=== PATIENT | male | born 1945 | race American Indian/Alaskan Native ===

== ENCOUNTER 2017-06-19 20:55 | Emergency (ER) | payer MEDICARE ==
[2017-06-19] MEDS ORDERED: NORMODYNE IV ONE (21:22)
[2017-06-19 21:49] LABS: Basophils # (Auto) 0.1 K/mm3 (0.0-0.1); Basophils % (Auto) 1.3 % (0.0-1.8); Eosinophils # (Auto) 0.2 K/mm3 (0.0-0.4); Eosinophils % (Auto) 5.1 % (0.0-4.3); Hematocrit 33.8 % (35.5-45.6); Lymphocytes # (Auto) 1.4 K/mm3 (1.2-5.4); Lymphocytes % (Auto) 30.6 % (13.4-35.0); Mean Corpuscular HGB Conc 33 % (32-34); Mean Corpuscular Hemoglobin 29 pg (28-32); Mean Corpuscular Volume 89 fl (84-94); Monocytes # (Auto) 0.4 K/mm3 (0.0-0.8); Platelet Count 273 K/mm3 (140-440); Red Cell Distribution Width 15.8 % (13.2-15.2)
[2017-06-19 22:05] LABS: INR 1.05 (0.87-1.13)
[2017-06-19 22:06] LABS: Partial Thromboplastin Time 37.5 Sec. (24.2-36.6)
[2017-06-19 22:16] LABS: Creatine Kinase MB 1.1 ng/mL (0.0-4.0)
[2017-06-19 22:17] LABS: Albumin 2.8 g/dL (3.9-5); BUN/Creatinine Ratio 13; Blood Urea Nitrogen 14 mg/dL (9-20); Calcium 8.3 mg/dL (8.4-10.2); Hemolysis Index 16
[2017-06-19 22:20] LABS: Alanine Aminotransferase < 5 units/L (7-56)
[2017-06-19] MEDS ORDERED: K-DUR PO ONE (22:28)
[2017-06-19] MEDS ORDERED: NACL ONE (22:37)
--- NOTE | 2017-06-19 23:27 | Cat Scan Report ---
FINAL REPORT PROCEDURE: CT HEAD/BRAIN WO CON TECHNIQUE: Computerized tomography of the head was performed without contrast material. HISTORY: dizzy/weak COMPARISON: No prior studies are available for comparison. FINDINGS: Skull and scalp: Normal. Paranasal sinuses: Normal. Ventricles and subarachnoid spaces: Are prominent consistent with cerebral atrophy appropriate for patient's age.. Cerebrum: There is mild degree bilateral periventricular nonspecific white matter hypodensity consistent with chronic microangiopathy. An acute intra-axial or extra-axial hemorrhage is not identified. There is no mass effect. An old lacunar infarct is noted in the right thalamus.. Cerebellum and brainstem: An old lacunar infarct is noted in the mirella.. Vasculature: Normal. Comments: None. IMPRESSION: No acute intracranial abnormality. Old lacunar infarcts right thalamus and mirella.
--- NOTE | 2017-06-19 23:48 | Cat Scan Report ---
FINAL REPORT PROCEDURE: CT ANGIO CHEST TECHNIQUE: Computerized tomographic angiography of the chest was performed after the IV injection of iodinated nonionic contrast including image processing. The image data was postprocessed using 2-dimensional multiplanar reformatted (MPR) and 3-dimensional (MIP and/or volume rendered) techniques. HISTORY: hx of pe and thoracic aneurysm COMPARISON: 02/09/2017 FINDINGS: Bilateral pulmonary arteries and their branches demonstrate normal opacification without filling defects. There is mild opacification of the ascending aorta. Rest of the aorta is not opacified. Ascending aorta measures about 4.4 x 4.4 centimeters in AP and transverse dimensions. 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 The size of the aneurysmal sac involving the aortic arch and descending thoracic aorta is stable and unchanged measuring 7.3 centimeters and 5.6 centimeters respectively in the maximal transverse dimensions. Subsegmental atelectatic changes are noted in bilateral lower lobes. There are no confluent infiltrates or mass lesions. Pleural spaces are clear. Visualized upper abdominal structures are within normal limits. IMPRESSION: No evidence of pulmonary embolism. No acute pulmonary process. Aorta is not opacified with contrast. Aortic endo graft is again noted with stable size of the aneurysmal sac involving aortic arch and descending thoracic aorta.
[2017-06-20 01:01] LABS: Bilirubin,Urine NEG (Negative); Blood,Urine SM (Negative); Color,Urine Yellow (Yellow); Nitrite,Urine NEG (Negative); Protein,Urine <15 mg/dL mg/dL (Negative); Urobilinogen,Urine < 2.0 mg/dL (<2.0)
[2017-06-20] MEDS ORDERED: CATAPRES PO ONE (02:15)
--- NOTE | 2017-06-20 02:16 | Emergency Department Report ---
- General Chief complaint: High BP Stated complaint: HIGH BP Time Seen by Provider: 06/19/17 21:07 Source: patient, EMS Mode of arrival: Wheelchair Limitations: No Limitations - History of Present Illness Initial comments: 71-year-old male with past medical history CHF, PE, descending thoracic aneurysm repair, previous ICH previous CVA, CAD/ME, hypertension, and dementia presents to the hospital with generalized weakness 1 week. Patient became dizzy today and presents with elevated blood pressure. Patient denies any pain , shortness of breath, nausea, or vomiting. He states that he primarily is wheelchair bound but uses a walker on occasion as well. Patient is alert and oriented 3 but dementia is reported. Severity scale (0 -10): 0 - Related Data Previous Rx's Medication Instructions Recorded Last Taken Type Carvedilol [Coreg] 3.125 mg PO BID #60 tablet 02/12/17 Unknown Rx Enoxaparin [Lovenox] 100 mg SUB-Q Q24HR #5 syringe 02/12/17 Unknown Rx Warfarin [Coumadin] 7.5 mg PO DAILY@1700 #30 tablet 02/12/17 Unknown Rx Allergies Allergy/AdvReac Type Severity Reaction Status Date / Time No Known Allergies Allergy Verified 02/06/16 04:10 ED Review of Systems ROS: Stated complaint: HIGH BP Other details as noted in HPI Comment: All other systems reviewed and negative Other: Constitutional: No fevers chills Eyes: No eye pain visual changes ENT: No ear pain or throat pain Neck: Denies pain Respiratory: Denies cough wheezing shortness of breath Cardiovascular: Denies chest pain, palpitations, syncope GI: Denies abdominal pain, nausea, vomiting, diarrhea : Denies dysuria Musculoskeletal: Denies back pain Skin: Denies rash, lesions, erythema Neurologic: Denies headache, numbness Psychiatric: Denies suicidal ideation, hallucinations ED Past Medical Hx - Past Medical History Hx Hypertension: Yes Hx CVA: Yes Hx Heart Attack/AMI: Yes (2+ yrs ago) Hx Congestive Heart Failure: Yes (diastolic heart failure EF of 45-50%) Hx Diabetes: No Hx Pulmonary Embolism: Yes (2016) Hx Asthma: No Hx COPD: No Additional medical history: Girlfriend reports he may have dementia? Intracerebral hemorrhage 2015. Prolonged immobility - Surgical History Hx Appendectomy: Yes Additional Surgical History: Descending thoracic aorta repair - Social History Smoking Status: Never Smoker Substance Use Type: None - Medications Home Medications: Home Medications Medication Instructions Recorded Confirmed Last Taken Type Carvedilol [Coreg] 3.125 mg PO BID #60 tablet 02/12/17 Unknown Rx Enoxaparin [Lovenox] 100 mg SUB-Q Q24HR #5 syringe 02/12/17 Unknown Rx Warfarin [Coumadin] 7.5 mg PO DAILY@1700 #30 tablet 02/12/17 Unknown Rx ED Physical Exam - General Limitations: No Limitations - Other Other exam information: General: No limitations, patient is alert in no acute distress Head exam: Atraumatic, normocephalic Eyes exam: Normal appearance, pupils equal reactive to light, extraocular movements intact ENT: Moist mucous membrane, normal oropharynx Neck exam: Normal inspection, full range of motion, no meningismus nontender Respiratory exam: Clear to auscultation bilateral, no wheezes, rales, crackles Cardiovascular: Normal rate and rhythm, normal heart sounds Abdomen: Soft, nondistended, and nontender, with normal bowel sounds, no rebound, or guarding Extremity: Full range of motion normal inspection no deformity Back: Normal Inspection, full range of motion, no tenderness Neurologic: Alert, oriented x3, cranial nerves intact, 5/5 upper extremity strength equal bilaterally, 4/5 bilateral lower extremity strength equal bilaterally. [id number] function intact. Sensation grossly intact Psychiatric: normal affect, normal mood Skin: Warm, dry, intact ED Course Vital Signs 06/19/17 06/19/17 06/19/17 21:11 21:21 23:10 Temperature 97.6 F Pulse Rate 75 73 Respiratory 16 16 Rate Blood Pressure 204/122 188/103 Blood Pressure [Left] O2 Sat by Pulse 98 100 Oximetry 06/20/17 00:00 Temperature Pulse Rate 64 Respiratory 16 Rate Blood Pressure Blood Pressure 169/98 [Left] O2 Sat by Pulse 100 Oximetry - Reevaluation(s) Reevaluation #1: 06/20/17 02:16 Blood pressure initially improved after labetalol 10 mg IV. His creeping back upward. 0.1 endocrine he ordered at this time ED Medical Decision Making - Lab Data Result diagrams: 06/19/17 21:28 06/19/17 21:28 Lab Results 06/19/17 06/19/17 06/19/17 Range/Units 21:28 21:28 21:28 WBC 4.5 (4.5-11.0) K/mm3 RBC 3.80 (3.65-5.03) M/mm3 Hgb 11.0 L (11.8-15.2) gm/dl Hct 33.8 L (35.5-45.6) % MCV 89 (84-94) fl MCH 29 (28-32) pg MCHC 33 (32-34) % RDW 15.8 H (13.2-15.2) % Plt Count 273 (140-440) K/mm3 Lymph % (Auto) 30.6 (13.4-35.0) % Pike % (Auto) 8.0 H (0.0-7.3) % Eos % (Auto) 5.1 H (0.0-4.3) % Baso % (Auto) 1.3 (0.0-1.8) % Lymph # 1.4 (1.2-5.4) K/mm3 Pike # 0.4 (0.0-0.8) K/mm3 Eos # 0.2 (0.0-0.4) K/mm3 Baso # 0.1 (0.0-0.1) K/mm3 Seg Neutrophils % 55.0 (40.0-70.0) % Seg Neutrophils # 2.5 (1.8-7.7) K/mm3 PT 14.3 (12.2-14.9) Sec. INR 1.05 (0.87-1.13) APTT 37.5 H (24.2-36.6) Sec. Sodium 139 (137-145) mmol/L Potassium 3.3 L (3.6-5.0) mmol/L Chloride 100.2 (98-107) mmol/L Carbon Dioxide 24 (22-30) mmol/L Anion Gap 18 mmol/L BUN 14 (9-20) mg/dL Creatinine 1.1 (0.8-1.5) mg/dL Estimated GFR > 60 ml/min BUN/Creatinine Ratio 13 % Glucose 88 (75-100) mg/dL Calcium 8.3 L (8.4-10.2) mg/dL Magnesium (1.7-2.3) mg/dL Total Bilirubin 0.50 (0.1-1.2) mg/dL AST 11 (5-40) units/L ALT < 5 L (7-56) units/L Alkaline Phosphatase 93 (35-129) units/L Total Creatine Kinase 105 (55-170) units/L CK-MB (CK-2) 1.1 (0.0-4.0) ng/mL CK-MB (CK-2) Rel Index 1.0 (0-4) Troponin T 0.016 (0.00-0.029) ng/mL Total Protein 8.5 H (6.3-8.2) g/dL Albumin 2.8 L (3.9-5) g/dL Albumin/Globulin Ratio 0.5 % Urine Color (Yellow) Urine Turbidity (Clear) Urine pH (5.0-7.0) Ur Specific [place] (1.003-1.030) Urine Protein (Negative) mg/dL Urine Glucose (UA) (Negative) mg/dL Urine Ketones (Negative) mg/dL Urine Blood (Negative) Urine Nitrite (Negative) Urine Bilirubin (Negative) Urine Urobilinogen (<2.0) mg/dL Ur Leukocyte Esterase (Negative) Urine WBC (Auto) (0.0-6.0) /HPF Urine RBC (Auto) (0.0-6.0) /HPF U Epithel Cells (Auto) (0-13.0) /HPF 18 06/20/17 Range/Units 22:28 00:43 WBC (4.5-11.0) K/mm3 RBC (3.65-5.03) M/mm3 Hgb (11.8-15.2) gm/dl Hct (35.5-45.6) % MCV (84-94) fl MCH (28-32) pg MCHC (32-34) % RDW (13.2-15.2) % Plt Count (140-440) K/mm3 Lymph % (Auto) (13.4-35.0) % Pike % (Auto) (0.0-7.3) % Eos % (Auto) (0.0-4.3) % Baso % (Auto) (0.0-1.8) % Lymph # (1.2-5.4) K/mm3 Pike # (0.0-0.8) K/mm3 Eos # (0.0-0.4) K/mm3 Baso # (0.0-0.1) K/mm3 Seg Neutrophils % (40.0-70.0) % Seg Neutrophils # (1.8-7.7) K/mm3 PT (12.2-14.9) Sec. INR (0.87-1.13) APTT (24.2-36.6) Sec. Sodium (137-145) mmol/L Potassium (3.6-5.0) mmol/L Chloride (98-107) mmol/L Carbon Dioxide (22-30) mmol/L Anion Gap mmol/L BUN (9-20) mg/dL Creatinine (0.8-1.5) mg/dL Estimated GFR ml/min BUN/Creatinine Ratio % Glucose (75-100) mg/dL Calcium (8.4-10.2) mg/dL Magnesium 2.00 (1.7-2.3) mg/dL Total Bilirubin (0.1-1.2) mg/dL AST (5-40) units/L ALT (7-56) units/L Alkaline Phosphatase (35-129) units/L Total Creatine Kinase (55-170) units/L CK-MB (CK-2) (0.0-4.0) ng/mL CK-MB (CK-2) Rel Index (0-4) Troponin T (0.00-0.029) ng/mL Total Protein (6.3-8.2) g/dL Albumin (3.9-5) g/dL Albumin/Globulin Ratio % Urine Color Yellow (Yellow) Urine Turbidity Clear (Clear) Urine pH 7.0 (5.0-7.0) Ur Specific [place] 1.026 (1.003-1.030) Urine Protein <15 mg/dl (Negative) mg/dL Urine Glucose (UA) Neg (Negative) mg/dL Urine Ketones Neg (Negative) mg/dL Urine Blood Sm (Negative) Urine Nitrite Neg (Negative) Urine Bilirubin Neg (Negative) Urine Urobilinogen < 2.0 (<2.0) mg/dL Ur Leukocyte Esterase Neg (Negative) Urine WBC (Auto) 3.0 (0.0-6.0) /HPF Urine RBC (Auto) 5.0 (0.0-6.0) /HPF U Epithel Cells (Auto) < 1.0 (0-13.0) /HPF - EKG Data -: EKG Interpreted by [facility] EKG shows normal: sinus rhythm, axis (-35), QRS complexes (107), ST-T waves ( ant lat t inv) Rate: normal (61) - EKG Data When compared to previous EKG there are: no significant change (compared to December 2016 EKG) - Radiology Data Radiology results: report reviewed Read by radiologist CT head: No acute findings. Old lacunar infarcts right thalamus in mirella CT angiogram chest: No evidence of pulmonary embolism. No acute process. Aortic endograft is again noted stable size of the aneurysm sac involving aortic arch and descending thoracic aorta - Medical Decision Making Patient has a nonfocal exam, labs did not reveal any significant abnormality other than mild hypokalemia. Imaging unremarkable. By mouth potassium provided. Patient was hypertensive but relatively asymptomatic. Blood pressure initially improved with labetalol. Initial clonidine given prior to discharge. Patient be discharged home to continue his current medications and to follow-up closely with his primary care doctor. - Differential Diagnosis hypertensive emergency, anemia, UTI, electrolyte abnormality, dissection Critical Care Time: No Critical care attestation.: If time is entered above; I have spent that time in minutes in the direct care of this critically ill patient, excluding procedure time. ED Disposition Clinical Impression: Uncontrolled hypertension, Debility, Generalized weakness Disposition: DC-01 TO HOME OR SELFCARE Is pt being admited?: No Does the pt Need Aspirin: No Condition: Stable Instructions: Hypertension (ED), Weakness (ED) Additional Instructions: Follow-up with your doctor or the doctor provided. Return if symptoms worsen. Continue your blood pressure medications as prescribed. Continue Monitoring of blood pressure at home. Referred to your doctor for medication adjustment. Referrals: MIKALA BALDWIN MD [Primary Care Provider] - 3-5 Days your, pmd [Other] - 3-5 Days Time of Disposition: 02:20
[2017-06-20 09:02] VITALS: BP 130/76
== END 2017-06-20 10:22 | disposition home or self-care (01) ==
LOC: ED 20:55
DX: I10 Essential (primary) hypertension (principal); I25.2 Old myocardial infarction; I11.0 Hypertensive heart disease with heart failure; I50.30 Unspecified diastolic (congestive) heart failure; Z86.73 Personal history of transient ischemic attack (TIA), and cerebral infarction without residual deficits
CPT/HCPCS: 36415; 70450; 71275; 80053; 81001; 82550; 82553; 83735; 84484; 85025; 85610; 85730; 93005; 93010; 96374; 99285; Q9967

== ENCOUNTER 2017-09-03 15:24 | Emergency (ER) | payer MEDICARE ==
--- NOTE | 2017-09-03 18:05 | Emergency Department Report ---
ED Medical Clearance HPI - General Chief complaint: High BP Stated complaint: HBP Time Seen by Provider: 09/03/17 17:00 Source: patient, EMS (ems notes not available at time of chart dictation), RN notes reviewed, old records reviewed Mode of arrival: Stretcher Limitations: No Limitations - History of Present Illness Initial comments: This is a 71-year-old male. I have evaluated him in the past. Patient has a past medical history of intracranial hemorrhage, resting aneurysm repair, hypertension, currently on Coumadin. The patient is sent to the ER by his visiting nurse for evaluation of elevated blood pressure that is not symptomatic. Apparently his blood pressure was 170/ 110. The patient has no complaints. He specifically denies headache, neck pain, chest pain, abdominal pain, shortness of breath, weakness, numbness, unsteady gait and urinary symptoms. MD Complaint: other (sense for evaluation of asymptomatic elevated blood pressure) -: unknown Reason for Medical Clearance: medical condition Place: home Alledged Intoxication: No Compliant with Home Medications: Yes Traumatic Symptoms: denies traumatic injury Associated Symptoms: denies: chest pain, shortness of breath, palpitations, diaphoresis, denies other symptoms, confusion, cough, fever/chills, headaches, anorexia, malaise, nausea/vomiting, rash, seizure, syncope, weakness Home medications: Previous Rx's Medication Instructions Recorded Last Taken Type Warfarin [Coumadin] 7.5 mg PO DAILY@1700 #30 tablet 02/12/17 07/11/17 Rx 7.5 AtorvaSTATin [Lipitor] 10 mg PO QHS #30 tablet 07/12/17 Unknown Rx Pantoprazole [Protonix TAB] 40 mg PO QDAY #30 tablet 07/12/17 Unknown Rx Carvedilol [Coreg] 3.125 mg PO BID #60 tablet 09/03/17 Unknown Rx Allergies/Adverse reactions: Allergies Allergy/AdvReac Type Severity Reaction Status Date / Time No Known Allergies Allergy Verified 02/06/16 04:10 ED Review of Systems ROS: Stated complaint: HBP Other details as noted in HPI Comment: All other systems reviewed and negative ED Past Medical Hx - Past Medical History Hx Hypertension: Yes Hx CVA: Yes (2015) Hx Heart Attack/AMI: Yes Hx Congestive Heart Failure: Yes (diastolic heart failure EF of 45-50%) Hx Diabetes: No Hx Pulmonary Embolism: Yes (2016) Hx GERD: Yes Hx Liver Disease: No Hx Renal Disease: No Hx Sickle Cell Disease: No Hx Arthritis: Yes Hx Headaches / Migraines: Yes (migraines) Hx Seizures: No Hx Kidney Stones: No Hx Psychiatric Treatment: No Hx Asthma: No Hx COPD: No Hx Tuberculosis: No Hx HIV: No Additional medical history: Girlfriend reports he may have dementia? Intracerebral hemorrhage 2015. Prolonged immobility - Surgical History Hx Appendectomy: Yes Additional Surgical History: Descending thoracic aorta repair - Social History Smoking Status: Never Smoker - Medications Home Medications: Home Medications Medication Instructions Recorded Confirmed Last Taken Type Warfarin [Coumadin] 7.5 mg PO DAILY@1700 #30 tablet 02/12/17 07/11/17 07/11/17 Rx 7.5 AtorvaSTATin [Lipitor] 10 mg PO QHS #30 tablet 07/12/17 Unknown Rx Pantoprazole [Protonix TAB] 40 mg PO QDAY #30 tablet 07/12/17 Unknown Rx Carvedilol [Coreg] 3.125 mg PO BID #60 tablet 09/03/17 Unknown Rx ED Physical Exam - General Limitations: No Limitations General appearance: alert, in no apparent distress - Head Head exam: Present: atraumatic, normocephalic - Eye Eye exam: Present: normal appearance, EOMI, other (visual acuity intact to finger counting, color perception, reading at a close distance). Absent: nystagmus - ENT ENT exam: Present: normal exam, normal orophraynx, mucous membranes moist, normal external ear exam - Neck Neck exam: Present: normal inspection, full ROM. Absent: tenderness, meningismus - Respiratory Respiratory exam: Present: normal lung sounds bilaterally. Absent: respiratory distress - Cardiovascular Cardiovascular Exam: Present: normal rhythm, bradycardia, normal heart sounds. Absent: tachycardia, irregular rhythm, systolic murmur, diastolic murmur, rubs, gallop - GI/Abdominal GI/Abdominal exam: Present: soft, normal bowel sounds. Absent: distended, tenderness, guarding, rebound, rigid, pulsatile mass - Rectal Rectal exam: Present: deferred - Extremities Exam Extremities exam: Present: normal inspection, full ROM, normal capillary refill. Absent: pedal edema, joint swelling, calf tenderness - Back Exam Back exam: Present: normal inspection, full ROM. Absent: tenderness, CVA tenderness (R), paraspinal tenderness, vertebral tenderness - Neurological Exam Neurological exam: Present: alert, oriented X3 (alert to name, month, location.) , CN II-XII intact, other (Extraocular movements intact. Tongue midline. No facial droop. Facial sensation intact to light touch in the V1, V2, V3 distribution bilaterally. 5 and 5 strength in 4 extremities.. Sensation is intact to light touch in 4 extremities.). Absent: motor sensory deficit - Psychiatric Psychiatric exam: Present: normal affect, normal mood - Skin Skin exam: Present: warm, dry, intact, normal color. Absent: rash ED Course Vital Signs 09/03/17 16:18 Temperature 98.4 F Pulse Rate 57 L Respiratory 16 Rate Blood Pressure 166/91 [right arm] O2 Sat by Pulse 99 Oximetry ED Medical Decision Making - Lab Data Vital Signs 09/03/17 16:18 Temperature 98.4 F Pulse Rate 57 L Respiratory 16 Rate Blood Pressure 166/91 [right arm] O2 Sat by Pulse 99 Oximetry - Medical Decision Making Differential diagnosis, including a not limited to: Asymptomatic elevated blood pressure, Gen. medical evaluation, medical screening exam Assessment and plan: 71-year-old male who has no complaints who is sent to the ER for evaluation of asymptomatic elevated blood pressure. Patient is alert and oriented to name, place, location and month. His physical exam is unremarkable. He does not endorse any specific complaint. His medication list is reviewed. I will refill his blood pressure medication. He does not require further diagnostic testing or evaluation at this time. Please reference the [employer] clinical policy on blood pressure that is asymptomatic ED Disposition Clinical Impression: Elevated blood pressure reading Disposition: TO HOME OR SELFCARE Is pt being admited?: No Does the pt Need Aspirin: No Condition: Good Instructions: Hypertension (ED) Additional Instructions: Continue current outpatient medications. Follow up with a listed primary care doctor within the next month for elevated blood pressure. Please follow up with her primary care doctor within the next 2-3 weeks for a Coumadin level checked. Blood pressure was somewhat elevated today. This should be followed up and checked out by a primary care doctor as recommended. Long-term complications of hypertension and elevated blood pressure include stroke, heart attack, disability, , paralysis, loss of quality of life. Return to the ER right away with fevers, chills, chest pain, shortness of breath, intractable nausea or vomiting, confusion, inability to tolerate liquid feeds. Referrals: PRIMARY CARE, [Primary Care Provider] - 3-5 Days DIAMOND PANG MD [Staff Physician] - 3-5 Days
[2017-09-03 18:46] VITALS: BP 160/89
== END 2017-09-03 23:56 | disposition home or self-care (01) ==
LOC: ED 15:24
DX: I10 Essential (primary) hypertension (principal); I50.9 Heart failure, unspecified; I25.2 Old myocardial infarction; K21.9 Gastro-esophageal reflux disease without esophagitis; M19.90 Unspecified osteoarthritis, unspecified site; G43.909 Migraine, unspecified, not intractable, without status migrainosus; Z90.49 Acquired absence of other specified parts of digestive tract; Z86.73 Personal history of transient ischemic attack (TIA), and cerebral infarction without residual deficits; Z86.711 Personal history of pulmonary embolism
CPT/HCPCS: 99283

== ENCOUNTER 2018-01-24 13:58 | Emergency (ER) | payer MEDICARE ==
--- NOTE | 2018-01-24 17:13 | Emergency Department Report ---
HPI - General Chief Complaint: Nausea/Vomiting/Diarrhea Time Seen by Provider: 01/24/18 16:26 - HPI HPI: 72-year-old -[place] male presents to the emergency department by EMS with complaint of some nausea, vomiting and abdominal pain that started just prior to presentation. The patient was sitting outside in his wheelchair when he complained to the symptoms to a friend who then brought him back inside and called EMS. Currently the patient says he is feeling improved. He has a past medical history of CHF, previous CVA, GERD, migraine headaches, coronary artery disease, hypertension, pulmonary embolism. He did not take anything and was not given anything for his symptoms prior to presentation. ED Past Medical Hx - Past Medical History Hx Hypertension: Yes Hx CVA: Yes (2015) Hx Heart Attack/AMI: Yes Hx Congestive Heart Failure: Yes (diastolic heart failure EF of 45-50%) Hx Diabetes: No Hx Pulmonary Embolism: Yes (2016) Hx GERD: Yes Hx Liver Disease: No Hx Renal Disease: No Hx Sickle Cell Disease: No Hx Arthritis: Yes Hx Headaches / Migraines: Yes (migraines) Hx Seizures: No Hx Kidney Stones: No Hx Psychiatric Treatment: No Hx Asthma: No Hx COPD: No Hx Tuberculosis: No Hx HIV: No Additional medical history: Girlfriend reports he may have dementia? Intracerebral hemorrhage 2015. Prolonged immobility - Surgical History Hx Appendectomy: Yes Additional Surgical History: Descending thoracic aorta repair - Social History Smoking Status: Never Smoker - Medications Home Medications: Home Medications Medication Instructions Recorded Confirmed Last Taken Type Pantoprazole [Protonix TAB] 40 mg PO QDAY #30 tablet 07/12/17 01/06/18 Unknown Rx Carvedilol [Coreg] 12.5 mg PO BID 01/06/18 01/06/18 Unknown History Furosemide [Lasix] 20 mg PO DAILY 01/06/18 01/06/18 Unknown History Warfarin [Coumadin] 5 mg PO DAILY 01/06/18 01/06/18 Unknown History Warfarin [Coumadin] 5 mg PO DAILY 01/06/18 01/06/18 Unknown History levETIRAcetam [Levetiracetam] 500 mg PO BID 01/06/18 01/06/18 Unknown History AtorvaSTATin [Lipitor] 10 mg PO QHS tablet 01/08/18 Unknown Rx Metoprolol [Lopressor TAB] 12.5 mg PO BID #60 tablet 01/08/18 Unknown Rx Nitrofurantoin Monohyd/M-Cryst 100 mg PO BID #14 capsule 01/25/18 Unknown Rx [Macrobid 100 mg Capsule] ED Review of Systems ROS: Stated complaint: ABD PAIN/VOMITING Other details as noted in HPI Comment: All other systems reviewed and negative Constitutional: denies: chills, fever Eyes: denies: eye pain, eye discharge, vision change ENT: denies: ear pain, throat pain Respiratory: denies: cough, shortness of breath, wheezing Cardiovascular: denies: chest pain, palpitations Gastrointestinal: abdominal pain, nausea, vomiting Genitourinary: denies: urgency, dysuria Musculoskeletal: denies: back pain, joint swelling, arthralgia Skin: denies: rash, lesions Neurological: denies: headache, numbness Physical Exam - Physical Exam Vital Signs: Vital Signs 01/24/18 01/24/18 01/24/18 14:52 16:04 16:13 Temperature 97.5 F L Pulse Rate 60 Respiratory 18 18 Rate Blood Pressure 146/91 Blood Pressure 115/72 [Left] O2 Sat by Pulse 96 Oximetry Physical Exam: GENERAL: The patient is well-developed well-nourished. HENT: Normocephalic. Atraumatic. Patient has moist mucous membranes. EYES: Extraocular motions are intact. Pupils equal reactive to light bilaterally. NECK: Supple. Trachea is midline. CHEST/LUNGS: Clear to auscultation. There is no respiratory distress noted. HEART/CARDIOVASCULAR: Regular. There is no tachycardia. There is no murmur. ABDOMEN: Abdomen is soft. No current tenderness to palpation. No guarding. Patient has normal bowel sounds. There is no abdominal distention. SKIN: Skin is warm and dry. NEURO: The patient is awake, alert and cooperative. The patient has no focal neurologic deficits. The patient has normal speech. MUSCULOSKELETAL: There is no tenderness or deformity. There is no evidence of acute injury. ED Course Vital Signs 01/24/18 01/24/18 01/24/18 14:52 16:04 16:13 Temperature 97.5 F L Pulse Rate 60 Respiratory 18 18 Rate Blood Pressure 146/91 Blood Pressure 115/72 [Left] O2 Sat by Pulse 96 Oximetry ED Medical Decision Making - Lab Data Result diagrams: 01/24/18 17:04 01/24/18 17:04 - Radiology Data Radiology results: report reviewed, image reviewed interpreted by me: Abdominal x-ray shows nonspecific nonobstructive bowel gas. There is some stool throughout the intestines. EXAM: CT ABDOMEN PELVIS W CON HISTORY: Abd pain TECHNIQUE: Helical CT scan through the abdomen and pelvis during intravenous injection of iodinated contrast. Images are reconstructed in the sagittal and coronal planes. Oral contrast was not given. PRIORS: 07/08/2017 FINDINGS: The lung bases are clear. There is an aortic stent in the distal thoracic aorta for chronic dissection. The lumen is patent. The visualized aorta is aneurysmal. The aorta at the level of the diaphragmatic hiatus measures 6.9 x 7.1 cm. Below the diaphragm there is aortic dissection. The celiac artery, SMA and bilateral renal arteries opacify normally. The dissection continues to the distal aorta to the bifurcation. There is no significant interval change from the previous exam. The iliac and femoral arteries opacify and are non aneurysmal. The liver, gallbladder, pancreas, spleen and adrenal glands appear normal. There are multiple stable bilateral renal cysts. The pelvic organs appear grossly normal. The stomach appears grossly within normal limits. There are no abnormally dilated loops of bowel or acute inflammatory changes. There is a relatively large amount of stool in the rectum The abdominal aorta has a normal diameter. The bones are diffusely demineralized. The lower thoracic and lumbar vertebrae are normal in height and alignment. There is lower thoracic spondylosis. There is degenerative disc disease at L5-S1. There is a small right inguinal hernia containing fluid. IMPRESSION: 1. No significant interval change in the appearance of a chronic aortic aneurysm and dissection with aortic stent in place in the distal thoracic aorta. 2. Question constipation 3. Otherwise, no acute findings Transcribed By: [facility] [place] Dictated By: ERNST DESIR MD Electronically Authenticated By: ERNST DESIR MD Signed Date/Time: 01/24/18 2100 EXAM: CT ANGIO CHEST HISTORY: Dissection TECHNIQUE: High-resolution helical axial images were obtained of the chest during intravenous administration of iodinated contrast. Images are reconstructed in the sagittal and coronal planes. PRIORS: CT of the chest from 06/19/2017 FINDINGS: The ascending thoracic aorta is ectatic measuring 4.4 cm in diameter, previously measuring 4.3 cm. There is an aortic stent in place just beyond the origin of the left subclavian artery to the proximal abdominal aorta for chronic dissection. The descending thoracic aorta is aneurysmal up to 6.1 cm. Previously, measured in a similar location it measured 7.1 cm. The lumen of the stent is patent. The heart is mildly enlarged. There is coronary artery atherosclerotic calcification. There is bibasilar subsegmental atelectasis. Otherwise, the lungs are clear. The bones are unremarkable. IMPRESSION: 1. Stent in place for chronic aortic dissection. Associated descending thoracic aortic aneurysm has decreased in size from 7.1-6.1 cm. 2. 4.4 cm ascending thoracic aortic aneurysm without significant interval change 3. Coronary artery atherosclerotic disease Transcribed By: MAIKEL Dictated By: ERNST DESIR MD Electronically Authenticated By: ERNST DESIR MD Signed Date/Time: 01/24/182150 - Medical Decision Making This patient came in with the complaint of having some abdominal pain and nausea and vomiting prior to arrival. However his symptoms seem to have resolved by the time of his history and physical. His abdomen is soft, nontender, nonrigid. The patient's blood work has been mostly unremarkable including no leukocytosis, no electrolyte abnormalities, no renal insufficiency or glucose abnormalities. The patient normal belly labs including lipase, bilirubin and LFTs. The urinalysis did show a urinary tract infection and the patient was given IV antibiotics. The patient had a CT of the abdomen and pelvis with IV contrast. On initial review of the CT, it appeared the patient had some dissections. However the patient does have a history of AAA and subsequent repair and stenting. In order to fully evaluate the patient's complaints and these chronic dissections, a CT of the chest with IV contrast/ angiography was also done. Once again it shows chronic dissections and the thoracic aneurysm as actually decreased in size from previous. During this process of getting the CT angiography, the patient had contrast extravasation into the right upper extremity. He had some swelling and discomfort at first but that has resolved. Warm compresses were wrapped around the arm. He was reevaluated after the extravasation multiple times and his compartments are soft , he has capillary refill less than 2 seconds to the fingertips and he has had a +2 over 4 radial pulse the entire time. It has been 3 or 4 hours since the contrast extravasation and the patient has no complaints of any discomfort, numbness, tingling or any sequela. His vital signs and stable throughout his ED course. Since the patient has been otherwise asymptomatic since arrival. Regarding his abdominal pain, nausea and vomiting, and has had a relatively negative workup excluding the urinary tract infection found, the patient will be discharged home. He has been instructed to follow-up with his primary care physician in the next few days but to return to the emergency department with any worsening of his symptoms or with any distress. - Differential Diagnosis diverticulitis, colitis, gastritis, AAA Critical Care Time: No Critical care attestation.: If time is entered above; I have spent that time in minutes in the direct care of this critically ill patient, excluding procedure time. ED Disposition Clinical Impression: Nausea and vomiting Qualifiers: Vomiting type: unspecified Vomiting Intractability: non-intractable Qualified Code(s): R11.2 - Nausea with vomiting, unspecified Abdominal pain Qualifiers: Abdominal location: generalized Qualified Code(s): R10.84 - Generalized abdominal pain UTI (urinary tract infection) Qualifiers: Urinary tract infection type: acute cystitis Hematuria presence: without hematuria Qualified Code(s): N30.00 - Acute cystitis without hematuria Disposition: TO HOME OR SELFCARE Is pt being admited?: No Condition: Stable Instructions: Urinary Tract Infection in Men (ED), Abdominal Pain (ED) Additional Instructions: Please follow-up with your primary care physician in the next few days. I've given urinary referral for a local urologist, Dr. Soto, to follow up regarding your urinary tract infection. Take the antibiotics as prescribed. Return to the emergency department with any return of your symptoms, or with any acute distress. Prescriptions: Nitrofurantoin Monohyd/M-Cryst [Macrobid 100 mg Capsule] 100 mg PO BID #14 capsule Referrals: DONG WEAVER MD [Primary Care Provider] - 3-5 Days CASSIE SOTO MD [Staff Physician] - 3-5 Days Time of Disposition: 00:25
[2018-01-24 17:20] LABS: Basophils % (Auto) 0.8 % (0.0-1.8); Eosinophils # (Auto) 0.1 K/mm3 (0.0-0.4); Eosinophils % (Auto) 1.6 % (0.0-4.3); Hematocrit 35.6 % (35.5-45.6); Hemoglobin 11.8 gm/dl (11.8-15.2); Lymphocytes # (Auto) 0.9 K/mm3 (1.2-5.4); Lymphocytes % (Auto) 14.6 % (13.4-35.0); Mean Corpuscular HGB Conc 33 % (32-34); Mean Corpuscular Hemoglobin 30 pg (28-32); Mean Corpuscular Volume 91 fl (84-94); Monocytes # (Auto) 0.2 K/mm3 (0.0-0.8); Monocytes % (Auto) 3.9 % (0.0-7.3); Platelet Count 232 K/mm3 (140-440); Red Cell Distribution Width 15.1 % (13.2-15.2)
[2018-01-24 17:28] LABS: Bilirubin,Urine NEG (Negative); Blood,Urine SM (Negative); Color,Urine Yellow (Yellow); Mucus,Urine FEW /HPF; Protein,Urine <15 mg/dL mg/dL (Negative)
[2018-01-24 17:39] LABS: Albumin 3.5 g/dL (3.9-5); BUN/Creatinine Ratio 16; Blood Urea Nitrogen 22 mg/dL (9-20); Calcium 9.1 mg/dL (8.4-10.2); Hemolysis Index 1; Lipase 36 units/L (13-60)
[2018-01-24 17:40] LABS: Alanine Aminotransferase < 5 units/L (7-56)
[2018-01-24] MEDS ORDERED: ROCEPHIN/NS 1 GM/50 ML 1 GM/50 ML BAG IV ONE (18:30)
[2018-01-24] MEDS ORDERED: NACL 0.9% 500 ML 500 ML ONE (20:42)
[2018-01-24] MEDS ORDERED: NACL 0.9% 1000 ML 1,000 ML IV SCH (21:00)
--- NOTE | 2018-01-24 21:01 | Cat Scan Report ---
FINAL REPORT EXAM: CT ABDOMEN PELVIS W CON HISTORY: Abd pain TECHNIQUE: Helical CT scan through the abdomen and pelvis during intravenous injection of iodinated contrast. Images are reconstructed in the sagittal and coronal planes. Oral contrast was not given. PRIORS: 07/08/2017 FINDINGS: The lung bases are clear. There is an aortic stent in the distal thoracic aorta for chronic dissection. The lumen is patent. The visualized aorta is aneurysmal. The aorta at the level of the diaphragmatic hiatus measures 6.9 x 7.1 cm. Below the diaphragm there is aortic dissection. The celiac artery, SMA and bilateral renal arteries opacify normally. The dissection continues to the distal aorta to the bifurcation. There is no significant interval change from the previous exam. The iliac and femoral arteries opacify and are non aneurysmal. The liver, gallbladder, pancreas, spleen and adrenal glands appear normal. There are multiple stable bilateral renal cysts. The pelvic organs appear grossly normal. The stomach appears grossly within normal limits. There are no abnormally dilated loops of bowel or acute inflammatory changes. There is a relatively large amount of stool in the rectum The abdominal aorta has a normal diameter. The bones are diffusely demineralized. The lower thoracic and lumbar vertebrae are normal in height and alignment. There is lower thoracic spondylosis. There is degenerative disc disease at L5-S1. There is a small right inguinal hernia containing fluid. IMPRESSION: 1. No significant interval change in the appearance of a chronic aortic aneurysm and dissection with aortic stent in place in the distal thoracic aorta. 2. Question constipation 3. Otherwise, no acute findings
--- NOTE | 2018-01-24 21:16 | XRay Report ---
FINAL REPORT PROCEDURE: XR ABDOMEN 2V TECHNIQUE: Abdominal series, including supine and upright AP views. HISTORY: Abd pain COMPARISON: No prior studies are available for comparison. FINDINGS: Bowel gas pattern:Moderate degree residual stool is noted in the colon and rectum. Intestinal gas is distributed predominantly in nondistended colon.. Masses or calcifications:None . Bony structures:No significant abnormality . Pneumoperitoneum:None . Other:A descending thoracic aortic endo graft is noted.. IMPRESSION: Nonspecific intestinal gas pattern. Moderate degree residual stool..
--- NOTE | 2018-01-24 21:53 | Cat Scan Report ---
FINAL REPORT EXAM: CT ANGIO CHEST HISTORY: Dissection TECHNIQUE: High-resolution helical axial images were obtained of the chest during intravenous administration of iodinated contrast. Images are reconstructed in the sagittal and coronal planes. PRIORS: CT of the chest from 06/19/2017 FINDINGS: The ascending thoracic aorta is ectatic measuring 4.4 cm in diameter, previously measuring 4.3 cm. There is an aortic stent in place just beyond the origin of the left subclavian artery to the proximal abdominal aorta for chronic dissection. The descending thoracic aorta is aneurysmal up to 6.1 cm. Previously, measured in a similar location it measured 7.1 cm. The lumen of the stent is patent. The heart is mildly enlarged. There is coronary artery atherosclerotic calcification. There is bibasilar subsegmental atelectasis. Otherwise, the lungs are clear. The bones are unremarkable. IMPRESSION: 1. Stent in place for chronic aortic dissection. Associated descending thoracic aortic aneurysm has decreased in size from 7.1-6.1 cm. 2. 4.4 cm ascending thoracic aortic aneurysm without significant interval change 3. Coronary artery atherosclerotic disease
[2018-01-25 01:56] VITALS: BP 141/98
== END 2018-01-25 03:27 | disposition home or self-care (01) ==
LOC: ED 13:58
DX: N39.0 Urinary tract infection, site not specified (principal); R10.84 Generalized abdominal pain; R11.2 Nausea with vomiting, unspecified; I11.0 Hypertensive heart disease with heart failure; K21.9 Gastro-esophageal reflux disease without esophagitis; M19.90 Unspecified osteoarthritis, unspecified site; G43.909 Migraine, unspecified, not intractable, without status migrainosus; Z90.49 Acquired absence of other specified parts of digestive tract; Z86.711 Personal history of pulmonary embolism
CPT/HCPCS: 36415; 71275; 74019; 74177; 80053; 81001; 83690; 85025; 96365; 99285; J0696; J7040; Q9967